=== PATIENT | male | born 1985 | race Caucasian/White ===

== ENCOUNTER 2016-08-15 20:46 | Emergency (ER) | payer SELFPAY ==
[~2016-08-15] VITALS: Ht 182.9 cm; Wt 91.5 kg
[2016-08-16 04:02] VITALS: BP 102/65
== END 2016-08-16 04:03 | disposition home or self-care (01) ==
LOC: EME → EDBD 20:46 → EME 20:46
DX: F19.10 Other psychoactive substance abuse, uncomplicated (principal); R41.0 Disorientation, unspecified; F17.200 Nicotine dependence, unspecified, uncomplicated
CPT/HCPCS: 70450; 93005; 99281; 99284; J1630; J2250; J7030

== ENCOUNTER 2016-08-25 10:14 | Emergency (ER) | payer SELFPAY ==
[~2016-08-25] VITALS: Ht 182.9 cm; Wt 91.1 kg
[2016-08-25 10:55] LABS: EOSINOPHIL COUNT 0.1 K/uL (0-0.3); HEMATOCRIT 46.4 % (38.0-50.0); IMMATURE GRANULOCYTE (%) 0.8 % (0.0-0.7); IMMATURE GRANULOCYTE COUNT 0.1 K/uL; INSTRUMENT ABS NEUTROPHIL CT 9.5 K/uL; LYMPHOCYTE COUNT 1.5 K/uL (1.0-2.8); MCHC 34.1 G/DL (30.0-36.0); MCV 94.1 FL (86-99); MEAN PLAT.VOLUME 12.1 uM^3 (9.0-12.4); MONOCYTE (%) 5.8 % (3-12); MONOCYTE COUNT 0.7 K/uL (0-0.8); NEUTROPHIL (%) 79.5 % (45-76); NEUTROPHIL COUNT 9.5 K/uL (1.8-6.4); PLATELET COUNT 169 K/uL (156-360); RBC DIS.WIDTH-CV 13.9 % (11.8-14.6); RBC DIS.WIDTH-SD 47.8 % (39-53); RED BLOOD COUNT 4.93 M/uL (4.00-5.50)
[2016-08-25 11:10] LABS: CHLORIDE 106 mEq/L (99-109); POTASSIUM 3.2 mEq/L (3.7-5.4); SODIUM 141 mEq/L (136-147)
[2016-08-25 11:13] LABS: GLUCOSE 128 mg/dL (70-99)
[2016-08-25 11:14] LABS: ANION GAP 12 MEQ/L (2-14)
[2016-08-25 11:15] LABS: TOTAL BILIRUBIN 0.5 mg/dL (0.0-1.0)
[2016-08-25 11:16] LABS: SERUM ETHYL ALCOHOL < 10 mg/dL
[2016-08-25 11:17] LABS: ALKALINE PHOSPHATASE 70 IU/L (3-129); GFR ESTIMATE (CALCULATED) > 59 mL/min/
[2016-08-25 11:18] LABS: DIRECT BILIRUBIN 0.2 mg/dL (0.0-0.3)
[2016-08-25 11:19] LABS: UREA NITROGEN (BUN) 7 mg/dL (9-23)
[2016-08-25 11:20] LABS: SALICYLATE < 5.0 MG/DL (15-30)
[2016-08-25 12:15] VITALS: BP 132/90
== END 2016-08-25 12:22 | disposition left against medical advice (07) ==
LOC: EME → EDBD 10:14 → EME 12:22
PROVIDERS: Emergency Medicine
DX: T40.901A Poisoning by unspecified psychodysleptics [hallucinogens], accidental (unintentional), initial encounter (principal); F16.10 Hallucinogen abuse, uncomplicated; F17.200 Nicotine dependence, unspecified, uncomplicated
CPT/HCPCS: 80048; 80076; 81003; 85025; 93005; 99281; 99285; G0480; J2310; J7030

== ENCOUNTER 2016-08-29 20:54 | Emergency (ER) | payer SELFPAY ==
[~2016-08-29] VITALS: Ht 177.8 cm; Wt 86.0 kg
[2016-08-29 22:28] LABS: HEMATOCRIT 44.3 % (38.0-50.0); MCH 31.7 PG (29.0-34.0); MCHC 33.6 G/DL (30.0-36.0); MCV 94.3 FL (86-99); MEAN PLAT.VOLUME 12.7 uM^3 (9.0-12.4); PLATELET COUNT 173 K/uL (156-360); RBC DIS.WIDTH-CV 13.2 % (11.8-14.6); RBC DIS.WIDTH-SD 46.1 % (39-53); WHITE BLOOD COUNT 5.8 K/uL (4.1-10.2)
[2016-08-29 22:32] LABS: CHLORIDE 108 mEq/L (99-109); POTASSIUM 3.5 mEq/L (3.7-5.4); SODIUM 145 mEq/L (136-147)
[2016-08-29 22:34] LABS: GLUCOSE 102 mg/dL (70-99)
[2016-08-29 22:35] LABS: ANION GAP 11 MEQ/L (2-14)
[2016-08-29 22:37] LABS: SERUM ETHYL ALCOHOL < 10 mg/dL
[2016-08-29 22:38] LABS: GFR ESTIMATE (CALCULATED) > 59 mL/min/
[2016-08-29 22:39] LABS: UREA NITROGEN (BUN) 19 mg/dL (9-23)
[2016-08-30 02:09] VITALS: BP 126/94
== END 2016-08-30 02:28 | disposition home or self-care (01) ==
LOC: EME → EDBD 20:54 → EME 20:54
PROVIDERS: Emergency Medicine
DX: F19.10 Other psychoactive substance abuse, uncomplicated (principal); T65.91XA Toxic effect of unspecified substance, accidental (unintentional), initial encounter; R11.10 Vomiting, unspecified; F17.200 Nicotine dependence, unspecified, uncomplicated
CPT/HCPCS: 70450; 71010; 74000; 80048; 85027; 99281; 99284; G0480; J2310

== ENCOUNTER 2017-02-04 08:59 | Emergency (ER) | payer SELFPAY ==
[~2017-02-04] VITALS: Ht 175.3 cm; Wt 96.5 kg
[2017-02-04] MEDS ORDERED: ULTRAM50 MG PO (12:05)
[2017-02-04] MEDS ORDERED: FLEXERIL10 MG PO (12:05)
[2017-02-04 12:21] VITALS: BP 151/96
== END 2017-02-04 12:22 | disposition home or self-care (01) ==
LOC: EME 08:59
DX: S39.012A Strain of muscle, fascia and tendon of lower back, initial encounter (principal); X50.1XXA Overexertion from prolonged static or awkward postures, initial encounter; M54.41 Lumbago with sciatica, right side; F17.200 Nicotine dependence, unspecified, uncomplicated
CPT/HCPCS: 72100; 99281; 99283; J1885

== ENCOUNTER 2017-02-25 19:20 | Emergency (ER) | payer SELFPAY ==
[~2017-02-25] VITALS: Ht 175.3 cm; Wt 98.6 kg
[~2017-02-25 19:20] MED LIST: FLEXERIL10 MG PO; ULTRAM50 MG PO
[2017-02-25 19:41] VITALS: BP 115/71
== END 2017-02-25 20:36 | disposition left against medical advice (07) ==
LOC: EME 19:20
DX: R41.82 Altered mental status, unspecified (principal); Z53.20 Procedure and treatment not carried out because of patient's decision for unspecified reasons
CPT/HCPCS: 99281; 99282

== ENCOUNTER 2017-05-14 11:39 | Emergency (ER) | payer OTHER ==
[~2017-05-14] VITALS: Ht 177.8 cm; Wt 83.8 kg
[2017-05-14] MEDS ORDERED: MOTRIN800 MG PO (14:56)
[2017-05-14 15:07] VITALS: BP 129/92
== END 2017-05-14 15:09 ==
LOC: EME 11:39
PROC: 2W3EX1Z Immobilization of Right Hand using Splint (ICD-10-PCS; principal; 2017-05-14)
DX: S62.304A Unspecified fracture of fourth metacarpal bone, right hand, initial encounter for closed fracture (principal); S62.306A Unspecified fracture of fifth metacarpal bone, right hand, initial encounter for closed fracture; W22.09XA Striking against other stationary object, initial encounter; Y92.149 Unspecified place in prison as the place of occurrence of the external cause; F17.200 Nicotine dependence, unspecified, uncomplicated
CPT/HCPCS: 73130; 99281; 99284